=== PATIENT | male | born 1995 | race Caucasian/White ===

== ENCOUNTER 2023-08-25 09:56 | Emergency (ER) | payer OTHER ==
--- NOTE | 2023-08-25 11:57 | ED Physician Documentation ---
PD HPI OPHTHO - Stated complaint Stated Complaint: LT EYE PX - Chief complaint Chief Complaint: Heent - Additional information Additional information: 27-year-old male presents emergency department for left eye pain and swelling. 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 He flew again the next day and was having ongoing left eye pain and swelling mostly with any sort of extraocular movement especially to the left upper. He has had no fevers or chills no purulent drainage and denies any vision changes. He says he does not wear glasses or contacts regularly he says occasionally he will wear glasses as needed but nothing consistent. PD PAST MEDICAL HISTORY - Past Medical History Past Medical History: No - Past Surgical History Past Surgical History: No - Present Medications Home Medications: Ambulatory Orders Medication Instructions Recorded Confirmed Amox/Clav 875/125 [Augmentin 1 tablet PO Q12H 5 Days #10 tablet 08/25/23 875/125 Tab] - Allergies Allergies/Adverse Reactions: Allergies Allergy/AdvReac Type Severity Reaction Status Date / Time No Known Drug Allergies Allergy Verified 08/25/23 10:30 - Social History Does the pt smoke?: No Smoking Status: Never smoker Does the pt drink ETOH?: Yes Does the pt have substance abuse?: No - Immunizations Immunizations are current?: Yes PD ED PE NORMAL - Vitals Vital signs reviewed: Yes - General General: Alert and oriented X 3, No acute distress, Well developed/nourished - HEENT HEENT: Other (Pain to left eye with any lateral eye movement. No purulent drainage to left eye, no erythema or redness of the sclera, intraocular pressure of left eye of 20, there is swelling surrounding the left orbit. No erythema surrounding the eye.) - Derm Derm: Other (No erythema) - Neuro Neuro: Alert and oriented X 3, No motor deficit, Normal speech Eye Opening: Spontaneous Motor: Obeys Commands Verbal: Oriented GCS Score: 15 Results - Vitals Vitals: Vital Signs - 24 hr 08/25/23 08/25/23 10:25 15:56 Temperature 37.1 C 36.2 C L Heart Rate 54 L 67 Respiratory 16 16 Rate Blood Pressure 125/71 125/67 O2 Saturation 98 99 Oxygen O2 Source Room air - EKG (time done) 1612 EKG releavant findings:: EKG personally interpreted by author of this note. Relevant findings are: - Labs Labs: Laboratory Tests 08/25/23 08/25/23 13:04 13:04 WBC 7.1 RBC 5.15 Hgb 15.5 Hct 45.3 MCV 88.0 MCH 30.1 MCHC 34.2 RDW 11.7 L Plt Count 203 MPV 10.8 Neut # (Auto) 4.4 Lymph # (Auto) 1.9 Wilkin # (Auto) 0.7 Eos # (Auto) 0.1 Baso # (Auto) 0.0 Absolute Nucleated RBC 0.00 Nucleated RBC % 0.0 Sodium 138 Potassium 4.1 Chloride 103 Carbon Dioxide 28 Anion Gap 7.0 BUN 18 Creatinine 0.9 Estimated GFR (MDRD) 101 Glucose 94 Calcium 9.5 - Rads (name of study) CT orbits w Relevant Findings:: Final report received, EMP independent interpretation of test, Other (No lesions, mass, abscesses, or other acute abnormalities or findings. ) PD Medical Decision Making - ED course ED course: 27-year-old male here for left eye pain. Has not had any obvious erythema to the left eye becoming less worried about some sort of preseptal cellulitis. His intraocular pressure of the left eye is 20 became lacerated about some sort of compartment syndrome. He had no fluorescein uptake making me less worried about possible shingles in the left eye or foreign body to left eye. He denies any foreign body sensation to the left eye as well. Because the pain is so significant with any left lateral eye movement decided to go ahead with CT orbit and this did not reveal any acute findings, no inflammation, or other abnormalities. Labs are complete prior to initiating CT scan he has no leukocytosis kidney function is within normal limits no acute abnormalities. Although the presentation is not a clear diagnosis of preseptal cellulitis because of the pain with any orbital movement I went ahead and started the pt on Augmentin. He was given local opthamology clinic phone number and told to follow up with them outpatient first thing tomorrow for further evaluation. Departure - Departure Disposition: 01 Home, Self Care Clinical Impression: Periorbital cellulitis of left eye Condition: Good Instructions: ED Cellulitis Toya Orbital Prescriptions: Amox/Clav 875/125 [Augmentin 875/125 Tab] 1 tablet PO Q12H 5 Days #10 tablet Comments: Thank you for trusting us with your care, at this time our work-up appears to be benign at this point. I am not entirely certain that this is perio-orbital cellulitis but I do think it would be best to start on Augmentin until you are able to see an japanese tutor tomorrow. Please call [facility] [phone] to make an appointment with them tomorrow. I sent your prescription to [facility] in [place] of our Augmentin, please take as prescribed unless otherwise recommended by ophthalmology Forms: PCP List Discharge Date/Time: 08/25/23 16:19
[2023-08-25 13:14] LABS: BASOPHILS % (AUTO) 0.4 %; EOSINOPHILS # (AUTO) 0.1 10^3/uL (0.0-0.7); EOSINOPHILS % (AUTO) 1.3 %; HCT - HEMATOCRIT 45.3 % (42.0-52.0); HGB - HEMOGLOBIN 15.5 g/dL (14.0-18.0); LYMPHOCYTES # (AUTO) 1.9 10^3/uL (1.5-3.5); LYMPHOCYTES % (AUTO) 26.1 %; MEAN CORPUSCULAR HEMOGLOBIN 30.1 pg (27.0-31.0); MEAN CORPUSCULAR HGB CONC 34.2 g/dL (32.0-36.0); MEAN PLATELET VOLUME 10.8 fL (7.4-11.4); MONOCYTES # (AUTO) 0.7 10^3/uL (0.0-1.0); MONOCYTES % (AUTO) 9.2 %; NEUTROPHILS # (AUTO) 4.4 10^3/uL (1.5-6.6); NEUTROPHILS % (AUTO) 62.7 %; PLT - PLATELET COUNT 203 10^3/uL (130-450); RED BLOOD COUNT 5.15 10^6/uL (4.70-6.10); RED CELL DISTRIBUTION WIDTH 11.7 % (12.0-15.0); WHITE BLOOD COUNT 7.1 x10^3/uL (4.8-10.8)
[2023-08-25 14:03] LABS: CALCIUM 9.5 mg/dL (8.5-10.3); CREATININE 0.9 mg/dL (0.6-1.3); POTASSIUM 4.1 mmol/L (3.5-4.5)
[2023-08-25] MEDS ORDERED: iohexoL-300 100 ML VIAL ONE (14:38)
[2023-08-25] MEDS: iohexoL-300 100 ML VIAL IVP ONE (15:20)
--- NOTE | 2023-08-25 15:26 | CT Report ---
PROCEDURE: Orbits W INDICATIONS: left eye pain with movement CONTRAST: Omnipaque 300, 100 mL TECHNIQUE: After the administration of intravenous contrast, 2.0 mm axial images acquired through the orbits, wi th coronal reformatting. For radiation dose reduction, the following was used: automated exposure c ontrol, adjustment of mA and/or kV according to patient size. 3 dimension reformation was performed. COMPARISON: None FINDINGS: Image quality: Diagnostic. Orbits: Globes are symmetrical. The optic nerves are normal in size and enhancement. No retrobulba r masses or fat abnormalities. The extra-ocular muscles are normal and symmetrical in appearance. L acrimal glands are normal. Optic chiasm is normal. Periorbital soft tissues are normal. Intracranial: The pituitary gland is normal, without sellar or suprasellar masses. Visualized cereb ral hemispheres, brainstem, and spinal cord appear normal. Bones and sinuses: Visualized calvarium and facial bones appear intact. Visualized sinuses and mast oids are clear. IMPRESSION: Negative CT orbits. No abnormal enhancement or suspicious mass lesions. No evidence for acute inflamm atory changes. Reviewed by: Jose L Story MD on 08/25/2023 3:25 PM PST Approved by: Jose L Story MD on 08/25/2023 3:25 PM PST Station ID: [id number]
[2023-08-25] MEDS: AMOX/CLAV 875 MG/125 MG TABLET PO STA (15:56)
[2023-08-25 16:02] VITALS: BP 125/67; O2SAT 99
== END 2023-08-25 16:19 | disposition home or self-care (01) ==
LOC: ED 09:56
DX: L03.213 Periorbital cellulitis (principal)
CPT/HCPCS: 36415; 70481; 80048; 85025; 99284; A9270; Q9967